=== PATIENT | male | born 1995 | race Caucasian/White ===

== ENCOUNTER 2017-02-01 09:33 | Emergency (ER) | payer OTHER ==
--- NOTE | 2017-02-01 12:16 | ER NURSING DOCUMENTATION ---
Nurse's Notes [facility] Name:Chris Rascon Age:21 yrs Sex:Male :1995 Arrival Date:02/01/2017 Time:09:33 Bed6 Private MD: Diagnosis:Finger Laceration Presentation: 02/01 09:45 Presenting complaint: Patient states: Finger laceration. Transition of care: Home. lp 09:45 Acuity: [id number] 4 lp 09:45 Method Of Arrival: Private Vehicle lp Triage Assessment: 09:50 General: Appears in no apparent distress, Behavior is appropriate for age. Pain: lp Complains of pain in palmar aspect of distal phalanx of left middle finger. EENT: No deficits noted. Neuro: No deficits noted. Cardiovascular: No deficits noted. Respiratory: No deficits noted. GI: No deficits noted. : No deficits noted. Derm: L middle finger laceration. Musculoskeletal: No deficits noted. Injury Description: Laceration sustained to palmar aspect of distal phalanx of left middle finger. Historical: - Allergies: No known drug Allergies; - Home Meds: 1. None - PMHx: None; - PSHx: None; - Tetanus: < 10 years. - Ebola Screening: : Patient negative for fever greater than or equal to 101.5 degrees Fahrenheit, and additional compatible Ebola Virus Disease symptoms. Patient denies exposure to infectious person. Patient denies travel to an Ebola-affected area in the 21 days before illness onset. . - Immunization history: Unable to Obtain. - Social history: Smoking status: Patient states was never smoker of tobacco. Screenin:53 Infectious Disease Risk None. Abuse screen: Denies threats or abuse. Denies injuries lp from another. Nutritional screening: No deficits noted. Assessment: 09:53 See Triage Assessment done by same RN. lp Vital Signs: 09:38 BP 151 / 69; Pulse 84; Resp 16; Temp 97.8(O); Pulse Ox 92% on R/A; Weight 78 kg (R); arc Height 6 ft. 2 in. (190 cm) (R); Pain 3/10; 12:12 BP 140 / 55; Pulse 76; Pulse Ox 95% on R/A; arc 09:38 Body Mass Index 21.61 (78.00 kg, 190 cm) arc ED Course: 09:34 Patient arrived in ED. arc 09:45 Pavlish, Nathalie, RN is Primary Nurse. lp 09:45 Triage completed. lp 09:52 Yrn Cantrell MD is Attending Physician. tl1 09:[address] Cantrell notified. lp 09:54 Valuables Remains with patient Patient has correct armband on for positive lp identification. Placed in gown. Bed in low position. Call light in reach. 11:03 Wound care to laceration located on left hand was Irrigation Normal Saline Patient arc tolerated well. Administered Medications: No medications were administered Outcome: 12:07 Discharge ordered by . tl1 12:14 Discharged to home ambulatory. lp 12:14 Condition: stable 12:14 Instructed on discharge instructions, follow up and referral plans. medication usage, wound care, Come back in 10 days for suture removal 12:15 Patient left the ED. lp Signatures: Nathalie Sandhu RN RN Yrn Cantrell MD MD tl1 Whit Moreno, Reg Reg arc
--- NOTE | 2017-02-01 12:16 | ER PHYSICIAN DOCUMENTATION ---
Physician Documentation [facility] Name:Chris Rascon Age:21 yrs Sex:Male :1995 Arrival Date:02/01/2017 Time:09:33 Bed6 Private MD: Yrn Alexandra Disposition: 02/01/17 12:07 Discharged to Home/Self Care. Impression: Finger Laceration. - Condition is Good. - Discharge Instructions: FINGER LACERATION - LACERATION, Hand. - Medical Reconciliation form form. - Follow up: Private Physician; When: 10 - 14 days; Reason: Staple/Suture removal. - Problem is new. - Symptoms have worsened. Historical: - Allergies: No known drug Allergies; - Home Meds: 1. None - PMHx: None; - PSHx: None; - Tetanus: < 10 years. - Ebola Screening: : Patient negative for fever greater than or equal to 101.5 degrees Fahrenheit, and additional compatible Ebola Virus Disease symptoms. Patient denies exposure to infectious person. Patient denies travel to an Ebola-affected area in the 21 days before illness onset. . - Immunization history: Unable to Obtain. - Social history: Smoking status: Patient states was never smoker of tobacco. Vital Signs: 02/01 09:38 BP 151 / 69; Pulse 84; Resp 16; Temp 97.8(O); Pulse Ox 92% on R/A; Weight 78 kg (R); arc Height 6 ft. 2 in. (190 cm) (R); Pain 3/10; 12:12 BP 140 / 55; Pulse 76; Pulse Ox 95% on R/A; arc 09:38 Body Mass Index 21.61 (78.00 kg, 190 cm) arc MDM: 09:52 Patient medically screened. tl1 Dispensed Medications: No medications were administered Signatures: Nathalie Sandhu RN RN lp Leigh, Tom, MD MD tl1
== END 2017-02-01 12:15 | disposition home or self-care (01) ==
LOC: ER 09:33
DX: S61.213A Laceration without foreign body of left middle finger without damage to nail, initial encounter (principal); W26.0XXA Contact with knife, initial encounter; Y92.511 Restaurant or cafe as the place of occurrence of the external cause; Y93.G3 Activity, cooking and baking
CPT/HCPCS: 12001; 99283